=== PATIENT | female | born 1945 | race Hispanic/Latino ===

== ENCOUNTER 2023-03-10 15:35 | Outpatient (CLI) | payer MEDICARE, BC | END 2023-03-10 15:36 | disposition home or self-care (01) | LOC: RAD 15:35 | PROVIDERS: ATTEND Family Medicine | DX: S69.91XA Unspecified injury of right wrist, hand and finger(s), initial encounter (principal); S62.646A Nondisplaced fracture of proximal phalanx of right little finger, initial encounter for closed fracture ==